=== PATIENT | female | born 1995 | race Caucasian/White ===

== ENCOUNTER 2017-02-05 20:06 | Emergency (ER) | payer BC ==
[2017-02-05 20:27] VITALS: RESP 18
--- NOTE | 2017-02-05 22:15 | ED ---
General Adult HPI - General Chief complaint: ENT Stated complaint: Congestion Time Seen by Provider: 02/05/17 21:36 Source: patient, RN notes reviewed, old records reviewed Mode of arrival: ambulatory Limitations: no limitations - History of Present Illness Initial comments: This is a 21-year-old female ER for evaluation today. Patient presents today for evaluation of sinus congestion and drainage. Patient has no medical history takes no medications, no travel history, only sick exposures her own daughter who she is with today. Low-grade fever. Denies smoking or any other significant medical disease. Patient has not taken any [id number] medications for symptoms at home. Symptoms for herself started on Monday and has been consistent. No shortness of breath, mild cough - Related Data Home Medications Medication Instructions Recorded Confirmed No Known Home Medications [No 02/05/17 02/05/17 Known Home Medications] Allergies Allergy/AdvReac Type Severity Reaction Status Date / Time No Known Allergies Allergy Verified 02/05/17 20:26 Review of Systems ROS Statement: Those systems with pertinent positive or pertinent negative responses have been documented in the HPI. ROS Other: All systems not noted in ROS Statement are negative. Past Medical History Past Medical History: No Reported History History of Any Multi-Drug Resistant Organisms: None Reported Past Surgical History: No Surgical Hx Reported Past Psychological History: No Psychological Hx Reported Smoking Status: Never smoker Past Alcohol Use History: Occasional Past Drug Use History: None Reported General Exam Limitations: no limitations General appearance: alert, in no apparent distress Head exam: Present: atraumatic, normocephalic, normal inspection Eye exam: Present: normal appearance, PERRL, EOMI. Absent: scleral icterus, conjunctival injection, periorbital swelling ENT exam: Present: normal exam, mucous membranes moist, other (Bilateral rhinitis with polyps) Neck exam: Present: normal inspection. Absent: tenderness, meningismus, lymphadenopathy Respiratory exam: Present: normal lung sounds bilaterally. Absent: respiratory distress, wheezes, rales, rhonchi, stridor Cardiovascular Exam: Present: regular rate, normal rhythm, normal heart sounds. Absent: systolic murmur, diastolic murmur, rubs, gallop, clicks GI/Abdominal exam: Present: soft, normal bowel sounds. Absent: distended, tenderness, guarding, rebound, rigid Extremities exam: Present: normal inspection, full ROM, normal capillary refill. Absent: tenderness, pedal edema, joint swelling, calf tenderness Back exam: Present: normal inspection Neurological exam: Present: alert, oriented X3, CN II-XII intact Psychiatric exam: Present: normal affect, normal mood Skin exam: Present: warm, dry, intact, normal color. Absent: rash Course Vital Signs 02/05/17 20:24 Temperature 99.3 F Pulse Rate 71 Respiratory 18 Rate Blood Pressure 117/66 O2 Sat by Pulse 98 Oximetry - Reevaluation(s) Reevaluation #1: 02/05/17 22:14 Patient's no acute distress no chest Medical Decision Making - Medical Decision Making 21 female here for evaluation of cough and congestion as well as increased nasal drainage. Patient in no acute distress and OK for dc home Disposition Clinical Impression: Rhinitis, Acute sinusitis Disposition: HOME SELF-CARE Condition: Good Instructions: Sinusitis (ED), Rhinosinusitis (ED) Referrals: Kylie Gaming MD [Primary Care Provider] - 1-2 days
[2017-02-05 23:06] VITALS: BP 107/67; PULSE 76; TEMP 98.8
== END 2017-02-05 23:06 | disposition home or self-care (01) ==
LOC: EC 20:06
DX: J01.90 Acute sinusitis, unspecified (principal)
CPT/HCPCS: 99283

== ENCOUNTER 2022-10-24 06:00 | Inpatient (IN) | payer OTHER ==
[2022-10-24] MEDS ORDERED: TERBUTALINE 1 MG/ML VIAL SQ PRN (06:12)
[2022-10-24] MEDS ORDERED: LIDOCAINE 0.5% (PF) 5 MG/ML (50 ML SDV) SQ PRN (06:12)
[2022-10-24 06:27] VITALS: RESP 16
[2022-10-24] MEDS ORDERED: OXYTOCIN 30 UNITS/500 ML NS 30 UNIT in SALINE 1 500ML.BAG IV SCH ×2 (06:30→13:45)
[2022-10-24] MEDS: LACTATED RINGERS 1,000 ML IV SCH ×2 (06:32→10:03)
[2022-10-24 06:37] LABS: Basophils % (A) 1 %; Eosinophils # (A) 0.1 k/uL (0-0.7); Eosinophils % (A) 1 %; HCT 40.3 % (34.0-46.0); HGB 13.9 gm/dL (11.4-16.0); Lymphocytes # (A) 1.6 k/uL (1.0-4.8); Lymphocytes % (A) 18 %; MCH 30.5 pg (25.0-35.0); MCHC 34.4 g/dL (31.0-37.0); MCV 88.7 fL (80.0-100.0); Mean Platelet Volume 10.8; Monocytes # (A) 0.6 k/uL (0-1.0); Monocytes % (A) 7 %; Neutrophils # (A) 6.3 k/uL (1.3-7.7); Neutrophils % (A) 71 %; Platelet Count 130 k/uL (150-450); RBC 4.55 m/uL (3.80-5.40); RDW 14.2 % (11.5-15.5); WBC 8.8 k/uL (3.8-10.6)
--- NOTE | 2022-10-24 08:35 | P.HPOB ---
History of Present Illness H&P Date: 10/24/22 Chief Complaint: Elective Induction of Labor Ms. Sandoval is a 26 year old at 40 weeks, 1 day with EDC of 10/23/22 who presents for elective induction of labor. The has been significant for suspected large for gestational age fetus in the 92%ile at 36 weeks. Past obstetric history is significant for 1 full term vaginal delivery with that infant weighing 8 pounds. Laboratory data throughout the showed GBS negative, blood type A positive, 1hr GTT of 113, HBsAg negative, RPR non-reactive, Rubella immune, HIV non-reactive. Past Medical History Past Medical History: No Reported History History of Any Multi-Drug Resistant Organisms: None Reported Past Surgical History: No Surgical Hx Reported Past Psychological History: No Psychological Hx Reported Smoking Status: Never smoker Past Alcohol Use History: Occasional Past Drug Use History: None Reported Medications and Allergies Home Medications Medication Instructions Recorded Confirmed Type Vit No.179/Iron/Folic 1 each PO 10/24/22 History [ Tablet] Allergies Allergy/AdvReac Type Severity Reaction Status Date / Time No Known Allergies Allergy Verified 09/29/22 10:38 Exam Vital Signs Temp Pulse Resp BP Pulse Ox 10/24/22 06:09 97.0 F L 82 16 105/65 98 Intake and Output 10/23/22 10/24/22 10/24/22 22:59 06:59 14:59 Other: Weight 77.111 kg Focused exam is performed. This is a healthy appearing gravid woman in no apparent distress. Cervical exam is 3 centimeteres, 70% effacement, and -3 station. AROM is untertaken at 823 with clear fluid noted. Results Result Diagrams: 10/24/22 06:15 Abnormal Lab Results - Last 24 Hours (Table) 10/24/22 Range/Units 06:15 Plt Count 130 L (150-450) k/uL Assessment and Plan Assessment: 26 y/o at 40w1d presenting for eIOL Plan: - s/p AROM at 823 for clear fluid - on oxytocin, continue per protocol - NPO, mIVF - epidural prn Time with Patient: Less than 30
[2022-10-24] MEDS ORDERED: fentaNYL (PF) 50 MCG/ML 5 ML AMP ONE (09:47)
[2022-10-24] MEDS ORDERED: SODIUM CHLORIDE 0.9% 100 ML BAG ONE (09:47)
[2022-10-24] MEDS ORDERED: ROPIVACAINE 5 MG/ML 20 ML AMPULE ONE (09:47)
[2022-10-24] MEDS ORDERED: METHYLERGONOVINE 0.2 MG/ML 1 ML AMP IM ONE (13:03)
[2022-10-24] MEDS ORDERED: HYDROCORTISONE 2.5% RECTAL CREAM 30 GM TUBE RECTAL PRN (13:41)
[2022-10-24] MEDS ORDERED: IBUPROFEN 600 MG TAB PO PRN (13:41)
[2022-10-24] MEDS ORDERED: BENZOCAINE/MENTHOL SPRAY 1 GM/SPRAY AEROSOL TOPICAL PRN (13:41)
[2022-10-24] MEDS ORDERED: LANOLIN CREAM 5 GM TUBE TOPICAL PRN (13:41)
[2022-10-24] MEDS ORDERED: diphenhydrAMINE 50 MG/ML 1 ML VIAL IVP PRN ×2 (13:41)
[2022-10-24] MEDS ORDERED: diphenhydrAMINE 25 MG CAP PO PRN (13:41)
[2022-10-24] MEDS ORDERED: ZOLPIDEM 5 MG TAB PO PRN (13:41)
[2022-10-24] MEDS ORDERED: SIMETHICONE 80 MG CHEWABLE PO PRN (13:41)
[2022-10-24] MEDS ORDERED: diphenhydrAMINE 50 MG CAP PO PRN (13:41)
--- NOTE | 2022-10-24 13:51 | P.PROBDLV ---
Vaginal Delivery Note - . Vaginal Delivery Note: PROCEDURE: Vaginal Delivery ATTENDING: Dr. Ashtyn Galvez MD ESTIMATED BLOOD LOSS: 500mL FINDINGS: VFI, Apgars 6/9, weight 9#1oz PROCEDURE: Patient was a 26 y/o at 40 weeks, 1 day who presented to labor and delivery for elective induction of labor. Oxytocin was started and AROM was completed at 823 resulting in clear fluid. Patient was completely dilated by 1150. Patient pushed effectively. Head delivered follow but very broad shoulders that required Benji positioning and delivery of the posterior arm. The shoulders were followed by the rest of the body. Cord was clamped and cut. Infant placed on the warmer for the pediatric team. Plac enta delivered whole with gentle cord traction. Oxytocin was started to facilitate uterine tone. Uterine fundus slightly boggy and brisk bleeding noted on fundal massage. A bimanual massage was performed. One dose of 0.2 Methergine IM was given and the oxytocin was run wide open. The bleeding stopped and the uterus was satisfactorily firm. Perineal inspection revealed that the perineum was intact and did not require any repairs. The patient and were left in stable condition and allowed to begin the bonding process.
[2022-10-24] MEDS: SENNOSIDES-DOCUSATE SODIUM 1 EACH TAB PO SCH (21:06)
[2022-10-25] MEDS: ACETAMINOPHEN TAB 325 MG TAB PO PRN ×2 (02:21→08:15)
[2022-10-25 07:04] LABS: Basophils % (A) 0 %; Eosinophils # (A) 0.1 k/uL (0-0.7); Eosinophils % (A) 2 %; HCT 37.7 % (34.0-46.0); Lymphocytes # (A) 1.2 k/uL (1.0-4.8); Lymphocytes % (A) 12 %; MCH 30.9 pg (25.0-35.0); MCHC 34.4 g/dL (31.0-37.0); MCV 89.7 fL (80.0-100.0); Mean Platelet Volume 10.4; Monocytes # (A) 0.7 k/uL (0-1.0); Monocytes % (A) 7 %; Neutrophils # (A) 7.3 k/uL (1.3-7.7); Neutrophils % (A) 77 %; Platelet Count 113 k/uL (150-450); RDW 13.9 % (11.5-15.5); WBC 9.4 k/uL (3.8-10.6)
[2022-10-25] MEDS: SENNOSIDES-DOCUSATE SODIUM 1 EACH TAB PO SCH (08:15)
[2022-10-25 08:20] VITALS: BP 110/68; PULSE 70; TEMP 98.3
--- NOTE | 2022-10-25 08:32 | P.PNOBGVD ---
Subjective - Subjective Principal diagnosis: Normal Vaginal Delivery Interval history: Patient doing well this morning, no acute events overnight. She is tolerating PO without nausea or vomiting. She is voiding normally. She is ambulating without difficulty. her female without difficulty. Lochia is moderate. She denies chest pain, shortness of breath, fevers, chills, pain/swelling in the legs. Patient reports: Reports appetite normal, Reports voiding normally, Reports pain well controlled, Reports ambulating normally : doing well, nursing well Objective - Latest Vital Signs Latest vital signs: Vital Signs Temp Pulse Resp BP Pulse Ox 10/25/22 08:00 98.3 F 70 16 110/68 10/24/22 23:34 97.7 F 71 16 104/67 10/24/22 20:00 97.7 F 71 16 117/73 98 10/24/22 14:53 81 16 127/79 100 10/24/22 14:23 97.3 F L 70 16 110/63 100 10/24/22 13:53 67 16 114/59 100 10/24/22 13:38 70 16 123/59 100 10/24/22 13:23 72 16 131/60 100 10/24/22 13:08 98.1 F 77 16 118/67 100 10/24/22 12:53 90 16 117/63 Intake and Output 10/24/22 10/25/22 10/25/22 22:59 06:59 14:59 Output Total 700 Balance -700 Output: Urine 700 Other: # Voids 1 1 - Exam Extremities: Present: normal Abdomen: Present: normal appearance, soft Uterus: Present: normal, firm - Labs Labs: Abnormal Lab Results - Last 24 Hours (Table) 10/25/22 Range/Units 06:39 Plt Count 113 L (150-450) k/uL Assessment and Plan Assessment: 27 year old PPD#1 s/p vaginal delivery after elective induction of labor for post-dates. Plan: - Pt meeting all milestones appropriately - Female at the bedside doing well, nursing well Dispo: Discharge home today. Follow up in [address] Avendano for appointment.
--- NOTE | 2022-10-25 08:42 | P.DS ---
Providers Date of admission: 10/24/22 06:00 Expected date of discharge: 10/25/22 Attending physician: Radha Avendano Primary care physician: Stated None Hospital Course: 27 y/o now s/p elective induction of labor for post-dates who went on to have a vaginal delivery. She met milestones appropriately. Female doing well. She was discharged at 24 hours . Patient Condition at Discharge: Good Plan - Discharge Summary Discharge Rx Participant: No New Discharge Prescriptions: New Ibuprofen [Motrin] 800 mg PO Q8H PRN #30 tab PRN Reason: Mild Pain (Scale 1 To 3) Acetaminophen Tab [Tylenol Tab] 500 mg PO Q6H PRN #30 tablet PRN Reason: Moderate Pain (Scale 4 To 6) No Action Vit No.179/Iron/Folic [ Tablet] 1 each PO Discharge Medication List Vit No.179/Iron/Folic [ Tablet] 1 each PO 10/24/22 [History] Acetaminophen Tab [Tylenol Tab] 500 mg PO Q6H PRN #30 tablet 10/25/22 [Rx] Ibuprofen [Motrin] 800 mg PO Q8H PRN #30 tab 10/25/22 [Rx] Follow up Appointment(s)/Referral(s): Radha Avendano MD [STAFF PHYSICIAN] - 6 Weeks Patient Instructions/Handouts: Vaginal Delivery (DC), Bleeding (DC), Your Baby (DC), and Nipple Soreness (DC), How to Increase Your Milk Supply (DC), How to Tell if Your Baby is Getting Enough Breast Milk (DC), Depression (DC) Activity/Diet/Wound Care/Special Instructions: Activity as tolerated. Pelvic rest for 6 weeks. Discharge Disposition: HOME SELF-CARE
== END 2022-10-25 14:30 | disposition home or self-care (01) | DRG 807 ==
LOC: 4FBP 06:00
PROVIDERS: ADMIT Obstetrics & Gynecology; ATTEND Obstetrics & Gynecology
PROC: 3E033VJ Introduction of Other Hormone into Peripheral Vein, Percutaneous Approach (ICD-10-PCS; principal; 2022-10-24)
PROC: 10E0XZZ Delivery of Products of Conception, External Approach (ICD-10-PCS; principal; 2022-10-24)
PROC: 10907ZC Drainage of Amniotic Fluid, Therapeutic from Products of Conception, Via Natural or Artificial Opening (ICD-10-PCS; principal; 2022-10-24)
DX: O48.0 Post-term pregnancy (principal); O36.63X0 Maternal care for excessive fetal growth, third trimester, not applicable or unspecified; O66.0 Obstructed labor due to shoulder dystocia; O62.2 Other uterine inertia; Z3A.40 40 weeks gestation of pregnancy; Z37.0 Single live birth
CPT/HCPCS: 85025; 86850; 86900; 86901

== ENCOUNTER 2024-11-03 20:41 | Inpatient (IN) | payer OTHER ==
[2024-11-04] MEDS ORDERED: TRANEXAMIC 1,000 MG/100ML-NACL 1,000 MG in EMPTY BAG 1 BAG IV PRN (00:05)
[2024-11-04] MEDS ORDERED: METHYLERGONOVINE 0.2 MG/ML 1 ML AMP IM PRN (00:05)
[2024-11-04] MEDS ORDERED: miSOPROStoL 200 MCG TAB RECTAL PRN (00:05)
[2024-11-04] MEDS ORDERED: CARBOPROST TROMETHAMINE 250 MCG/ML 1 ML AMP IM PRN (00:05)
[2024-11-04] MEDS ORDERED: LIDOCAINE 0.5% (PF) 5 MG/ML (50 ML SDV) SQ PRN (00:05)
[2024-11-04] MEDS ORDERED: miSOPROStoL 200 MCG TAB PO PRN (00:05)
[2024-11-04] MEDS ORDERED: OXYTOCIN 10 UNIT/ML 1 ML VIAL IM PRN (00:05)
[2024-11-04] MEDS ORDERED: TERBUTALINE 1 MG/ML VIAL SQ PRN (00:05)
[2024-11-04] MEDS: LACTATED RINGERS 1,000 ML IV SCH (00:10)
[2024-11-04 01:04] LABS: Basophils % (A) 0 %; Eosinophils # (A) 0.1 k/uL (0-0.7); Eosinophils % (A) 1 %; HCT 37.8 % (34.0-46.0); Lymphocytes # (A) 1.3 k/uL (1.0-4.8); Lymphocytes % (A) 15 %; MCH 30.8 pg (25.0-35.0); MCHC 34.4 g/dL (31.0-37.0); MCV 89.5 fL (80.0-100.0); Mean Platelet Volume 10.3; Monocytes # (A) 0.5 k/uL (0-1.0); Monocytes % (A) 5 %; Neutrophils # (A) 6.6 k/uL (1.3-7.7); Neutrophils % (A) 77 %; Platelet Count 110 k/uL (150-450); RBC 4.22 m/uL (3.80-5.40); RDW 14.4 % (11.5-15.5); WBC 8.6 k/uL (3.8-10.6)
[2024-11-04] MEDS ORDERED: BUTORPHANOL 1 MG/ML 1 ML VIAL IV PRN (01:11)
--- NOTE | 2024-11-04 01:15 | P.HPOB ---
History of Present Illness H&P Date: 11/04/24 Chief Complaint: 40-4/7 weeks, probable early labor The patient is a 29-year-old 3 para 2-0-0-2 who presents to the hospital initially at 40-3/7 weeks with irregular contractions. Over the course of several hours in triage, she made no significant cervical change but continued to have significant discomfort with contractions anywhere from 3 to 8 minutes apart. She had previously declined induction of labor but requested to remain in the hospital for augmentation of labor at this time. Her has been entirely uncomplicated and group B strep status is negative. On labor and delivery, all signs are reassuring with a category 1 heart rate tracing. Review of Systems Review of systems is confined to history of present illness. Past Medical History Past Medical History: No Reported History History of Any Multi-Drug Resistant Organisms: None Reported Past Surgical History: No Surgical Hx Reported Past Anesthesia/Blood Transfusion Reactions: No Reported Reaction Past Psychological History: No Psychological Hx Reported Smoking Status: Never smoker Past Alcohol Use History: Occasional Past Drug Use History: None Reported Medications and Allergies Home Medications Medication Instructions Recorded Confirmed Type Vit No.179/Iron/Folic 1 each PO 10/24/22 History [ Tablet] Allergies Allergy/AdvReac Type Severity Reaction Status Date / Time No Known Allergies Allergy Verified 11/03/24 20:50 Exam Vital Signs Temp Pulse Resp BP Pulse Ox 11/04/24 00:42 97.4 F L 81 16 121/72 98 Intake and Output 11/03/24 11/03/24 11/04/24 14:59 22:59 06:59 Other: Weight 77.111 kg 77.111 kg In general, this is a well-developed, well-nourished white female in no acute distress. Her heart has a regular rhythm and rate without murmur. Her lungs are clear to auscultation bilateral in all wills. Her abdomen is gravid, nondistended, has normal active bowel sounds, soft, nontender, without any palpable masses aside from uterine fundus. Her extremities are without any cyanosis, clubbing, or significant edema and are nontender to palpation bilaterally. Digital cervical examination performed by the nursing staff demonstrates her cervix to be 3 to 4 cm dilated, 70% effaced, with a vertex and presentation at -2 station. Results Result Diagrams: 11/04/24 00:34 Abnormal Lab Results - Last 24 Hours (Table) 11/04/24 Range/Units 00:34 Plt Count 110 L (150-450) k/uL Assessment and Plan (1) Irregular contractions Current Visit: Yes Status: Acute Code(s): O47.9 - FALSE LABOR, UNSPECIFIED SNOMED Code(s): 94939570 (2) Post-dates Current Visit: Yes Status: Acute Code(s): O48.0 - POST-TERM SNOMED Code(s): 90113505 Plan: The patient is admitted for observation for labor but would likely be augmented in the morning should there be no change given her postdates status. She will have close maternal and surveillance and expectant management will be practiced. She is a good candidate for either IV or epidural analgesia, which ever she may choose. I have asked that Pitocin augmentation be started tomorrow between 6 and 7 AM and then we will likely proceed with artificial rupture of membranes.
[2024-11-04] MEDS ORDERED: ROPIVACAINE 5 MG/ML 30 ML VIAL ONE (01:55)
[2024-11-04] MEDS ORDERED: SODIUM CHLORIDE 0.9% 250 ML BAG ONE (01:55)
[2024-11-04] MEDS ORDERED: fentaNYL (PF) 50 MCG/ML 5 ML AMP ONE (01:55)
[2024-11-04] MEDS ORDERED: ZOLPIDEM 5 MG TAB PO PRN (08:24)
[2024-11-04] MEDS ORDERED: SIMETHICONE 80 MG CHEWABLE PO PRN (08:24)
[2024-11-04] MEDS ORDERED: HYDROCORTISONE 2.5% RECTAL CREAM 30 GM TUBE RECTAL PRN (08:24)
[2024-11-04] MEDS ORDERED: LANOLIN CREAM 1 GM TUBE TOPICAL PRN (08:24)
[2024-11-04] MEDS ORDERED: diphenhydrAMINE 50 MG CAP PO PRN (08:24)
[2024-11-04] MEDS ORDERED: diphenhydrAMINE 50 MG/ML 1 ML VIAL IVP PRN ×2 (08:24)
[2024-11-04] MEDS ORDERED: BENZOCAINE/MENTHOL SPRAY 1 GM/SPRAY AEROSOL TOPICAL PRN (08:24)
[2024-11-04] MEDS ORDERED: diphenhydrAMINE 25 MG CAP PO PRN (08:24)
[2024-11-04] MEDS ORDERED: ACETAMINOPHEN TAB 500 MG TAB PO PRN (08:24)
[2024-11-04] MEDS: OXYTOCIN 30 UNITS/500 ML NS 30 UNIT in SALINE 1 500ML.BAG IV SCH (08:28)
[2024-11-04] MEDS ORDERED: OXYTOCIN 30 UNITS/500 ML NS 30 UNIT in SALINE 1 500ML.BAG IV SCH (08:30)
--- NOTE | 2024-11-04 08:30 | P.PROBDLV ---
Vaginal Delivery Note - . Vaginal Delivery Note: The patient is a 29-year-old 3 para 2-0-0-2 admitted at 40-4/7 weeks by good dating parameters. She is admitted in probable early labor with irregular contractions but no cervical change. Her has been uncomplicated and group B strep status is negative. After admission, she began to make progress on her own and had an epidural catheter placed for analgesia. She ultimately progressed to approximately 9 cm at which time artificial rupture of membranes was carried out for clear fluid. She then progressed quickly to complete and pushed over the course of approximately 10 to 15 minutes to a normal spontaneous vaginal delivery of a viable 9 pound 1 ounce baby girl with Apgars of 9 at 1 minute and 10 at 5 minutes delivered in the direct occiput anterior position. The placenta was delivered spontaneously, intact, and grossly normal with a robson sly normal three-vessel cord inserted approximately 5 to 6 cm from the margin of the placental disc. There were no lacerations of the perineum, vagina, or cervix. Estimated blood loss for the case was approximately 150 mL. There were no complications. All sponge, instrument, and needle counts were correct. Both mother and infant are resting comfortably in recovery.
[2024-11-04 15:47] VITALS: RESP 16
[2024-11-04] MEDS: IBUPROFEN 800 MG TAB PO PRN (19:46)
[2024-11-04] MEDS: SENNOSIDES-DOCUSATE SODIUM 1 EACH TAB PO SCH (19:46)
[2024-11-05 05:36] LABS: Basophils % (A) 0 %; Eosinophils # (A) 0.1 k/uL (0-0.7); Eosinophils % (A) 2 %; HGB 12.1 gm/dL (11.4-16.0); Lymphocytes # (A) 1.7 k/uL (1.0-4.8); Lymphocytes % (A) 20 %; MCH 30.5 pg (25.0-35.0); MCHC 32.8 g/dL (31.0-37.0); MCV 92.7 fL (80.0-100.0); Mean Platelet Volume 10.1; Monocytes # (A) 0.6 k/uL (0-1.0); Monocytes % (A) 7 %; Neutrophils # (A) 5.7 k/uL (1.3-7.7); Neutrophils % (A) 69 %; Platelet Count 101 k/uL (150-450); RBC 3.99 m/uL (3.80-5.40); WBC 8.3 k/uL (3.8-10.6)
[2024-11-05 08:04] VITALS: BP 106/66; PULSE 73; TEMP 97.6
--- NOTE | 2024-11-05 09:26 | P.DS ---
Providers Date of admission: 11/03/24 23:45 Expected date of discharge: 11/05/24 Attending physician: Radha Avendano - Discharge Diagnosis(es) (1) Irregular contractions Current Visit: Yes Status: Acute (2) Post-dates Current Visit: Yes Status: Acute (3) Normal spontaneous vaginal delivery Current Visit: Yes Status: Acute Hospital Course: The patient is a 29-year-old 3 para 2-0-0-2 who presents to the hospital with irregular contractions at 40-3/7 weeks by good dating parameters. She was observed for several hours and made no cervical change but continued to be significantly uncomfortable. She was admitted for potential augmentation of labor. Overnight she actually progressed on her own and underwent artificial rupture of membranes for clear fluid. She progressed quickly to complete. An epidural catheter had been placed for analgesia. She pushed over the course of approximately 10 to 15 minutes to a normal spontaneous vaginal delivery of a viable 9 pound 1 ounce baby girl with Apgars of 9 at 1 minute and 10 at 5 minutes. Her course was unremarkable with vital signs remaining stable and her temperature was afebrile throughout. She was deemed stable for discharge on day #1 and was discharged home to follow-up in the office in 6 weeks time routinely. Discharge instructions included calling for any significantly increased bleeding or foul-smelling lochia, significantly increased fever abdominal pain, perineal complaints, breast complaints, or anything else that concerned her. She was additionally instructed to have nothing in the vagina for at least 6 weeks time to include intercourse. She understood her instructions and agrees to follow-up as noted above. Discharge medications included continued vitamins as she has opted breast-feed as well as [id number] analgesic pain medications. Maternal blood type is Rh+ and rubella status is immune. Procedures: #1. Epidural analgesia #2. Artificial rupture of membranes #3. Normal spontaneous vaginal delivery Patient Condition at Discharge: Stable Plan - Discharge Summary New Discharge Prescriptions: No Action Vit No.179/Iron/Folic [ Tablet] 1 each PO Discharge Medication List Vit No.179/Iron/Folic [ Tablet] 1 each PO 10/24/22 [History] Follow up Appointment(s)/Referral(s): Radha Avendano MD [STAFF PHYSICIAN] - 12/16/24 1:00 pm Discharge Disposition: HOME SELF-CARE
== END 2024-11-05 10:00 | disposition home or self-care (01) | DRG 807 ==
LOC: FBPOP 20:41 → 4FBP 23:45
PROVIDERS: ADMIT Obstetrics & Gynecology; ATTEND Obstetrics & Gynecology
PROC: 10E0XZZ Delivery of Products of Conception, External Approach (ICD-10-PCS; principal; 2024-11-04)
PROC: 10907ZC Drainage of Amniotic Fluid, Therapeutic from Products of Conception, Via Natural or Artificial Opening (ICD-10-PCS; 2024-11-04)
DX: O48.0 Post-term pregnancy (principal); Z37.0 Single live birth; Z3A.40 40 weeks gestation of pregnancy
CPT/HCPCS: 59025; 85025; 86850; 86900; 86901; 99213